=== PATIENT | female | born 2000 | race Caucasian/White ===

== ENCOUNTER 2021-07-28 06:03 | Emergency (ER) | payer OTHER ==
[~2021-07-28] VITALS: Ht 162.6 cm; Wt 61.4 kg
[2021-07-28 06:09] VITALS: TEMP 98.2
[2021-07-28] MEDS ORDERED: PREDNISONE20 MG PO (06:42)
[2021-07-28 07:34] VITALS: BP 107/90; PULSE 105
== END 2021-07-28 07:35 | disposition home or self-care (01) ==
LOC: COL.ER 06:03
DX: J45.901 Unspecified asthma with (acute) exacerbation (principal)
CPT/HCPCS: J7512